=== PATIENT | male | born 1930 | race Two or more races ===

== ENCOUNTER 2018-01-15 14:57 | Emergency (ER) | payer MEDICARE, OTHER ==
[~2018-01-15] VITALS: Ht 157.5 cm; Wt 72.6 kg
[2018-01-15 15:05] VITALS: BP 121/73
[2018-01-15] MEDS ORDERED: Norco 5mg/325mg tab PO ONE (15:15)
[2018-01-15] MEDS ORDERED: Ketorolac 30mg Inj IM ONE (15:15)
--- NOTE | 2018-01-15 16:44 | Diagnostic Imaging Report ---
Indication: Pain status post injury Technique: XRAY L [facility] Comparison: None Findings: Bones are demineralized. There are multilevel degenerative changes of the spine with multilevel facet arthropathy, disc space narrowing and osteophyte formation. There is grade 1 anterolisthesis of L5 on S1. L5 is sacralized. There are atherosclerotic calcifications of the aorta. A coarse calcification is noted in the pelvis, possibly calcified fibroid. Symphysis pubis and sacroiliac joints preserved. IMPRESSION: Osteopenia. Multilevel degenerative change of the lumbar spine. No definite acute fracture.
[2018-01-15 16:46] LABS: APPEARANCE,URINE CLEAR; BILIRUBIN, URINE NEGATIVE (NEGATIVE); COLOR,URINE PALE YELLOW; GLUCOSE, URINE (UA) NEGATIVE (NEGATIVE); KETONES,URINE NEGATIVE (NEGATIVE); LEUKOCYTE ESTERASE ,URINE 2+ (NEGATIVE); NITRITE,URINE POSITIVE (NEGATIVE); PH,URINE 8 (4.5-8.0); PROTEIN,URINE NEGATIVE (NEGATIVE); UROBILINOGEN,URINE NORMAL (NORMAL)
--- NOTE | 2018-01-15 16:48 | Diagnostic Imaging Report ---
Indication: Pain status post fall 4 days ago Technique: XRAY Bilateral Hip w/AP Pelvis Comparison: None Findings: Osteopenia. No definite/displaced acute pelvic fracture identified. No dislocation. Mild degenerative change of the bilateral hips. Degenerative changes of the lower lumbar spine partially visualized. Coarse calcification in the pelvis possibly calcified fibroid. Additional pelvic calcifications may represent phleboliths. No radiopaque foreign body seen. Impression: Osteopenia. No definite/displaced acute pelvic fracture identified.
[2018-01-15 16:55] VITALS: BP 125/75
[2018-01-15] MEDS ORDERED: CEPHALEXIN500 MG ORAL (16:56)
[2018-01-15] MEDS ORDERED: NORCO 5-325 TA1 EACH ORAL (16:56)
[2018-01-15] MEDS ORDERED: IBUPROFEN600 MG ORAL (16:56)
[2018-01-15 17:15] VITALS: BP 125/75
--- NOTE | 2018-01-15 18:00 | Emergency Room Report ---
History of Present Illness General Chief Complaint: Pain Source: Patient, Medical Record Present Illness HPI Patient presents emergency department today status post fall. Patient states that she fell couple days ago and hit her hips her back as well as her head. She went to a urgent care center where she received a CT scan of the brain as well as x-rays of the hip and was told everything was negative. She was subsequently discharged but continues to have pain. She states the pain so bad that she often can't walk. No other complaints are noted. She denies any history urinary frequency or urinary retention. Denies loss of consciousness. States that the headache and the head is better.No other modifying factors. No other associated signs and symptoms. No other complaints were noted. Symptoms noted to moderate. Allergies: Coded Allergies: No Known Allergies (Unverified , 01/15/18) Patient History Past Medical History: asthma Past Surgical History: none Pertinent Family History: none Social History: Denies: smoking, alcohol use, drug use Reviewed Nursing Documentation: PMH: Agreed; PSxH: Agreed Nursing Documentation-PMH Past Medical History: No History, Except For Hx Asthma: Yes Review of Systems All Other Systems: negative except mentioned in HPI Physical Exam Vital Signs Date Time Temp Pulse Resp B/P (MAP) Pulse Ox O2 Delivery O2 Flow Rate FiO2 01/15/18 14:55 98.7 80 18 121/73 99 Room Air 98.8 Sp02 EP Interpretation: reviewed, normal General Appearance: normal inspection, well appearing, no apparent distress, alert Head: atraumatic Eyes: bilateral eye normal inspection ENT: normal ENT inspection, hearing grossly normal, normal voice Neck: normal inspection, full range of motion, supple, no bony tend Respiratory: normal inspection, lungs clear, normal breath sounds, no respiratory distress, no retraction, no wheezing Cardiovascular #1: regular rate, rhythm, no edema Gastrointestinal: normal inspection, normal bowel sounds, non tender, soft, no guarding, no hernia Genitourinary: no CVA tenderness Musculoskeletal: normal range of motion, other - Tender lower back Neurologic: normal inspection, alert, responsive, speech normal Psychiatric: normal inspection, judgement/insight normal, mood/affect normal Skin: normal inspection, normal color, no rash Medical Decision Making Diagnostic Impression: Primary Impression: UTI (urinary tract infection) Additional Impressions: Back pain Fall ER Course Patient presents emergency department today complaining of back pain as well as hip pain. Differential considerations cofactors dislocation versus strain. Given patient's presentation I felt that x-rays are indicated a urine testing was indicated. X-rays were noted to be negative by radiology. Urine show evidence UTI. Patient was starting antibiotics. Patient was given injection for pain medication as well as pain pill and feels much better. Patient was given prescription for pain medications. Patient was given Keflex for UTI.Patient is advised to follow up with primary doctor in 2-3 days and return the emergency room for any worsening symptoms and as needed. Labs Test 01/15/18 16:15 Urine Color Pale yellow Urine Appearance Clear Urine pH 8 (4.5-8.0) Urine Specific [place] 1.010 (1.005-1.035) Urine Protein Negative (NEGATIVE) Urine Glucose (UA) Negative (NEGATIVE) Urine Ketones Negative (NEGATIVE) Urine Occult Blood Negative (NEGATIVE) Urine Nitrite Positive (NEGATIVE) Urine Bilirubin Negative (NEGATIVE) Urine Urobilinogen Normal MG/DL (NORMAL) Urine Leukocyte Esterase 2+ (NEGATIVE) Urine RBC 0-2 /HPF (0 - 0) Urine WBC 2-4 /HPF (0 - 0) Urine Squamous Epithelial Cells Few /LPF (NONE/OCC) Urine Bacteria Moderate /HPF (NONE) Last Vital Signs Date Time Temp Pulse Resp B/P (MAP) Pulse Ox O2 Delivery O2 Flow Rate FiO2 01/15/18 17:15 98.7 70 18 125/75 97 Room Air 98.7 Status: improved Disposition: HOME, SELF-CARE Condition: Stable Scripts Cephalexin* (KEFLEX*) 500 Mg Capsule 500 MG ORAL EVERY 6 HOURS for 7 Days, CAP Prov: Marlon Murrell MD 01/15/18 Ibuprofen* (MOTRIN*) 600 Mg Tablet 600 MG ORAL Q8H PRN for For Pain, #10 TAB 0 Refills Prov: Marlon Murrell MD 01/15/18 Hydrocodone Bit/Acetaminophen 5-325* (NORCO 5-325*) 1 Each Tablet 1 TAB ORAL Q6H PRN for For Pain, #20 TAB 0 Refills Prov: Marlon Murrell MD 01/15/18 Patient Instructions: Lumbosacral Strain, Urinary Tract Infection Marlon Murrell MD Jan 15, 2018 17:59
== END 2018-01-15 17:15 | disposition home or self-care (01) ==
LOC: EDBD 14:57 → EMR 15:45
DX: N39.0 Urinary tract infection, site not specified (principal); J45.909 Unspecified asthma, uncomplicated; Z91.81 History of falling; M54.9 Dorsalgia, unspecified
CPT/HCPCS: 72020; 73521; 81003; 87086; 87181; 99284; J1885